=== PATIENT | male | born 1980 | race Caucasian/White ===

== ENCOUNTER 2023-04-04 16:48 | Emergency (ER) | payer MEDICAID ==
[2023-04-04] VITALS (12 sets, daily range): BP systolic 115–135; BP diastolic 73–96
[~2023-04-04] VITALS: Ht 182.9 cm; Wt 75.7 kg
[2023-04-04] MEDS ORDERED: KEFLEX500 MG PO (19:53)
== END 2023-04-04 20:43 | disposition home or self-care (01) ==
LOC: ED 16:48
DX: S01.81XA Laceration without foreign body of other part of head, initial encounter (principal); S40.011A Contusion of right shoulder, initial encounter; S60.211A Contusion of right wrist, initial encounter; S20.213A Contusion of bilateral front wall of thorax, initial encounter; F17.200 Nicotine dependence, unspecified, uncomplicated; Y00.XXXA Assault by blunt object, initial encounter; Y92.009 Unspecified place in unspecified non-institutional (private) residence as the place of occurrence of the external cause